=== PATIENT | female | born 1955 | race Caucasian/White ===

== ENCOUNTER 2022-12-14 05:22 | Inpatient (IN) | payer OTHER, BC ==
[~2022-12-14] VITALS: Ht 167.6 cm; Wt 85.7 kg
[2022-12-14 05:25] VITALS: BP_SYST 175
[2022-12-14] MEDS ORDERED: SERT100T PO (05:40)
[2022-12-14] MEDS ORDERED: MORPHINE 4 MG INJ. 4 MG/ML VIAL IVP ONE (05:45)
[2022-12-14] MEDS ORDERED: NACL 0.9% 1,000 ML IV ONE (05:45)
[2022-12-14] MEDS ORDERED: ONDANSETRON HCL 4 MG/2 ML VIAL IVP ONE (05:45)
[2022-12-14 05:57] LABS: BASOPHILS % (AUTO) 0.7 % (0.0-2.0); EOSINOPHILS # (AUTO) 0.1 K/uL (0.0-0.4); HEMOGLOBIN 12.6 g/dL (12.0-16.0); LYMPHOCYTES # (AUTO) 2.3 K/uL (1.0-5.5); LYMPHOCYTES % (AUTO) 33.8 % (20.5-51.5); MEAN CORPUSCULAR HEMOGLOBIN 29 pg (27-31); MEAN CORPUSCULAR HGB CONC 33 % (32-36); MEAN CORPUSCULAR VOLUME 88 fL (79.0-98.0); MONOCYTES # (AUTO) 0.4 K/uL (0.0-1.0); MONOCYTES % (AUTO) 5.3 % (1.7-9.3); NEUTROPHILS % (AUTO) 59.2 % (40.0-70.0); PLATELET COUNT (AUTO) 398 K/uL (130-430); RED BLOOD CELL COUNT(AUTO) 4.29 MIL/uL (4.2-6.2); RED CELL DISTRIBUTION WIDTH 13.6 % (9.0-15.0); WHITE BLOOD COUNT (AUTO) 6.7 K/uL (4.8-10.8)
[2022-12-14] MEDS ORDERED: PROCHLORPERAZINE EDISYLATE 10 MG/2 ML VIAL IVP ONE (06:15)
[2022-12-14] MEDS ORDERED: fentaNYL CITRATE/PF 100 MCG/2 ML AMP IVP ONE ×2 (06:15→08:15)
[2022-12-14 06:18] LABS: ALBUMIN 2.7 g/dL (3.4-4.8); CREATININE 0.6 mg/dL (0.55-1.30); TOTAL BILIRUBIN 0.5 mg/dL (0.0-1.0)
[2022-12-14] MEDS ORDERED: KCL 40 mEq in 100 mL (PREMIX) 100 ML IV ONE (06:30)
[2022-12-14 07:33] LABS: BILIRUBIN,URINE NEGATIVE (NEGATIVE); BLOOD, URINE NEGATIVE (NEGATIVE); CLARITY/URINE CLEAR (CLEAR); COLOR,URINE YELLOW (YELLOW); GLUCOSE,URINE TRACE (NEGATIVE); KETONES,URINE TRACE (NEGATIVE); LEUKOCYTE ESTERASE ,URINE NEGATIVE (NEGATIVE); NITRITE, URINE NEGATIVE (NEGATIVE); PROTEIN URINE NEGATIVE (NEGATIVE); UROBILINOGEN,URINE 0.2 (0.2-1.0)
[2022-12-14] MEDS ORDERED: METOCLOPRAMIDE HCL 10 MG/2 ML VIAL IVP ONE (08:15)
[2022-12-14] MEDS ORDERED: KCL 20 mEq in 100 mL (PREMIX) 200 ML IV ONE (08:45)
[2022-12-14] MEDS ORDERED: GASTROGRAFIN 120 ML ONE (12:08)
[2022-12-14] MEDS ORDERED: hydrALAZINE HCL 20 MG/ML VIAL IVP ONE (13:00)
[2022-12-14] MEDS ORDERED: PANTOPRAZOLE SODIUM 40 MG/VIAL (PROTONIX) IVP ONE (15:30)
[2022-12-14 16:03] LABS: BASOPHILS % (AUTO) 0.3 % (0.0-2.0); HEMATOCRIT 38.2 % (36-48); HEMOGLOBIN 12.7 g/dL (12.0-16.0); LYMPHOCYTES # (AUTO) 0.6 K/uL (1.0-5.5); LYMPHOCYTES % (AUTO) 7.3 % (20.5-51.5); MEAN CORPUSCULAR HEMOGLOBIN 29 pg (27-31); MEAN CORPUSCULAR HGB CONC 33 % (32-36); MEAN CORPUSCULAR VOLUME 88 fL (79.0-98.0); MONOCYTES # (AUTO) 0.2 K/uL (0.0-1.0); MONOCYTES % (AUTO) 1.9 % (1.7-9.3); NEUTROPHILS # (AUTO) 7.9 K/uL (1.8-7.7); NEUTROPHILS % (AUTO) 90.5 % (40.0-70.0); PLATELET COUNT (AUTO) 500 K/uL (130-430); RED BLOOD CELL COUNT(AUTO) 4.33 MIL/uL (4.2-6.2); RED CELL DISTRIBUTION WIDTH 13.7 % (9.0-15.0); WHITE BLOOD COUNT (AUTO) 8.7 K/uL (4.8-10.8)
[2022-12-14 16:10] LABS: ANION GAP 12 (5-15); CALCIUM 8.9 mg/dL (8.4-11.0); CHLORIDE 100 mmol/L (98-107); CREATININE 0.81 mg/dL (0.55-1.30); GLUCOSE 181 mg/dL (70-99); UREA NITROGEN, BLOOD 16 mg/dL (8-21)
[2022-12-14 16:15] LABS: PROTHROMBIN TIME 10.1 SECS (9.5-12.5)
[2022-12-14] MEDS ORDERED: KCL 20 mEq in 100 mL (PREMIX) 100 ML IV ONE (16:15)
[2022-12-14 16:30] LABS: ALANINE AMINOTRANSFERASE 25 U/L (12-78); AMYLASE 44 U/L (0-100); ASPARTATE AMINOTRANSFERASE 23 U/L (10-37); C-REACTIVE PROTEIN QUANT < 0.2 mg/dL (0-0.5); GFR AFRICAN AMERICAN 91 mL/min (>90); LIPASE 89 U/L (73-393); TOTAL BILIRUBIN 0.7 mg/dL (0.0-1.0)
[2022-12-14] MEDS ORDERED: D5/0.45 NS 1,000 ML IV ONE (16:30)
[2022-12-14 16:41] LABS: ACETONE, SERUM NEGATIVE (NEGATIVE)
[2022-12-14 16:53] LABS: BILIRUBIN,URINE NEGATIVE (NEGATIVE); BLOOD, URINE NEGATIVE (NEGATIVE); CLARITY/URINE CLEAR (CLEAR); COLOR,URINE YELLOW (YELLOW); GLUCOSE,URINE TRACE (NEGATIVE); KETONES,URINE TRACE (NEGATIVE); LEUKOCYTE ESTERASE ,URINE NEGATIVE (NEGATIVE); NITRITE, URINE NEGATIVE (NEGATIVE); PROTEIN URINE 1+ (NEGATIVE); UROBILINOGEN,URINE 0.2 (0.2-1.0)
[2022-12-14 17:02] LABS: BACTERIA,URINE FEW /HPF (None Seen); MUCUS,URINE 1+ /LPF (None Seen); RBC,URINE 0-3 /HPF (0-3); WBC,URINE 0-3 /HPF (0-3)
[2022-12-14] MEDS ORDERED: ONDANSETRON HCL 4 MG/2 ML VIAL IVP PRN (17:45)
[2022-12-14] MEDS ORDERED: fentaNYL CITRATE/PF 100 MCG/2 ML AMP IVP PRN ×2 (17:45)
[2022-12-14] MEDS ORDERED: METOCLOPRAMIDE HCL 10 MG/2 ML VIAL IVP PRN (17:45)
[2022-12-14] MEDS ORDERED: NS IRRIG SOLN 1000 ML IR ONE (19:05)
[2022-12-14] MEDS ORDERED: ROCURONIUM BROMIDE 10 MG/ML (ZEMURON) ONE (19:05)
[2022-12-14] MEDS ORDERED: MIDAZOLAM HCL 5 MG/ML VIAL (VERSED) IV ONE (19:05)
[2022-12-14] MEDS ORDERED: NEOSTIGMINE METHYLSULFATE 1 MG/ML, 10 ML VIAL ONE (19:05)
[2022-12-14] MEDS ORDERED: PROPOFOL 200MG/ 20ML VIAL (DIPRIVAN) IV ONE (19:05)
[2022-12-14] MEDS ORDERED: LR 1,000 ML IV.SOLN IV ONE (19:05)
[2022-12-14] MEDS ORDERED: GLYCOPYRROLATE 0.2 MG/ML VIAL ONE (19:05)
[2022-12-14] MEDS ORDERED: SEVOFLURANE 15 MIN GAS INH ONE (19:05)
[2022-12-14] MEDS ORDERED: fentaNYL CITRATE/PF 100 MCG/2 ML AMP ONE ×2 (19:05→19:27)
[2022-12-14 21:06] LABS: BASOPHILS % (AUTO) 0.4 % (0.0-2.0); HEMATOCRIT 33.2 % (36-48); HEMOGLOBIN 11.1 g/dL (12.0-16.0); LYMPHOCYTES # (AUTO) 0.7 K/uL (1.0-5.5); LYMPHOCYTES % (AUTO) 6.6 % (20.5-51.5); MEAN CORPUSCULAR HEMOGLOBIN 29 pg (27-31); MEAN CORPUSCULAR HGB CONC 33 % (32-36); MEAN CORPUSCULAR VOLUME 88 fL (79.0-98.0); MONOCYTES # (AUTO) 0.6 K/uL (0.0-1.0); MONOCYTES % (AUTO) 5.8 % (1.7-9.3); NEUTROPHILS # (AUTO) 9.5 K/uL (1.8-7.7); NEUTROPHILS % (AUTO) 87.2 % (40.0-70.0); PLATELET COUNT (AUTO) 521 K/uL (130-430); RED BLOOD CELL COUNT(AUTO) 3.78 MIL/uL (4.2-6.2); RED CELL DISTRIBUTION WIDTH 13.6 % (9.0-15.0); WHITE BLOOD COUNT (AUTO) 10.9 K/uL (4.8-10.8)
[2022-12-14 21:15] LABS: CREATININE 0.71 mg/dL (0.55-1.30)
[2022-12-14] MEDS: LR 1,000 ML IV SCH (22:15)
[2022-12-14] MEDS ORDERED: metroNIDAZOLE 500 mg/NS 100 ML IV ONE ×2 (22:18→22:20)
[2022-12-14 22:39] VITALS: BP_SYST 108
[2022-12-15] VITALS (16 sets, daily range): BP systolic 81–139
[2022-12-15] MEDS ORDERED: NACL 0.9% 1,000 ML IV ONE ×2 (00:30→05:30)
[2022-12-15] MEDS: LR 1,000 ML IV SCH ×2 (05:00→12:37)
[2022-12-15] MEDS: metroNIDAZOLE 500 mg/NS 100 ML IV SCH ×4 (06:25→20:53)
[2022-12-15] MEDS: HYDROcodone/ACETAMIN 5-325 MG TAB (NORCO/ VICODIN) PO PRN (08:19)
[2022-12-15] MEDS: ENOXAPARIN SODIUM 100 MG/ML SYRINGE SUBCUT SCH ×2 (08:32→20:53)
[2022-12-15 09:08] LABS: BASOPHILS % (AUTO) 0.2 % (0.0-2.0); HEMATOCRIT 33.8 % (36-48); HEMOGLOBIN 11.4 g/dL (12.0-16.0); LYMPHOCYTES # (AUTO) 0.7 K/uL (1.0-5.5); MEAN CORPUSCULAR HEMOGLOBIN 30 pg (27-31); MEAN CORPUSCULAR HGB CONC 34 % (32-36); MEAN CORPUSCULAR VOLUME 89 fL (79.0-98.0); MONOCYTES # (AUTO) 1.1 K/uL (0.0-1.0); MONOCYTES % (AUTO) 10.4 % (1.7-9.3); NEUTROPHILS # (AUTO) 9.1 K/uL (1.8-7.7); NEUTROPHILS % (AUTO) 83.4 % (40.0-70.0); PLATELET COUNT (AUTO) 516 K/uL (130-430); RED BLOOD CELL COUNT(AUTO) 3.82 MIL/uL (4.2-6.2); RED CELL DISTRIBUTION WIDTH 14.2 % (9.0-15.0)
[2022-12-15 09:33] LABS: CALCIUM 7.8 mg/dL (8.4-11.0); CREATININE 1.06 mg/dL (0.55-1.30)
[2022-12-15] MEDS ORDERED: NS 500 ML IV ONE (10:15)
[2022-12-15] MEDS: HYDROmorphone 1 MG/ML INJ. CARTRIDGE IVP PRN (12:50)
[2022-12-15] MEDS: ONDANSETRON HCL 4 MG/2 ML VIAL IVP PRN (13:00)
[2022-12-16 00:50] VITALS: BP_SYST 94
[2022-12-16 02:40] VITALS: BP_SYST 115
[2022-12-16] MEDS: HYDROmorphone 1 MG/ML INJ. CARTRIDGE IVP PRN ×4 (02:43→17:26)
[2022-12-16] MEDS: LR 1,000 ML IV SCH ×3 (02:44→21:00)
[2022-12-16] MEDS: metroNIDAZOLE 500 mg/NS 100 ML IV SCH ×3 (05:54→21:38)
[2022-12-16 07:13] LABS: HEMATOCRIT 30.7 % (36-48); HEMOGLOBIN 10.4 g/dL (12.0-16.0); LYMPHOCYTES # (AUTO) 1.2 K/uL (1.0-5.5); LYMPHOCYTES % (AUTO) 8.8 % (20.5-51.5); MEAN CORPUSCULAR HEMOGLOBIN 30 pg (27-31); MEAN CORPUSCULAR HGB CONC 34 % (32-36); MEAN CORPUSCULAR VOLUME 88 fL (79.0-98.0); MONOCYTES # (AUTO) 1.9 K/uL (0.0-1.0); MONOCYTES % (AUTO) 13.6 % (1.7-9.3); NEUTROPHILS # (AUTO) 10.6 K/uL (1.8-7.7); NEUTROPHILS % (AUTO) 77.6 % (40.0-70.0); PLATELET COUNT (AUTO) 457 K/uL (130-430); RED BLOOD CELL COUNT(AUTO) 3.48 MIL/uL (4.2-6.2); RED CELL DISTRIBUTION WIDTH 14.3 % (9.0-15.0); WHITE BLOOD COUNT (AUTO) 13.6 K/uL (4.8-10.8)
[2022-12-16 07:29] LABS: CALCIUM 7.9 mg/dL (8.4-11.0); CREATININE 2.69 mg/dL (0.55-1.30)
[2022-12-16 08:00] VITALS: BP_SYST 106
[2022-12-16] MEDS: ENOXAPARIN SODIUM 100 MG/ML SYRINGE SUBCUT SCH ×2 (08:59→21:38)
[2022-12-16 12:00] VITALS: BP_SYST 110
[2022-12-16 16:00] VITALS: BP_SYST 112; BP_SYST 128
[2022-12-16 20:00] VITALS: BP_SYST 104
[2022-12-17] MEDS: HYDROmorphone 1 MG/ML INJ. CARTRIDGE IVP PRN ×3 (01:56→16:58)
[2022-12-17 03:16] VITALS: BP_SYST 117
[2022-12-17] MEDS: metroNIDAZOLE 500 mg/NS 100 ML IV SCH ×3 (04:55→22:00)
[2022-12-17] MEDS: LR 1,000 ML IV SCH ×2 (04:55→16:15)
[2022-12-17 07:12] LABS: ALBUMIN 1.7 g/dL (3.4-4.8); C-REACTIVE PROTEIN QUANT 20.2 mg/dL (0-0.5); CALCIUM 7.7 mg/dL (8.4-11.0); CREATININE 2.94 mg/dL (0.55-1.30); TOTAL BILIRUBIN 0.5 mg/dL (0.0-1.0)
[2022-12-17 08:16] VITALS: BP_SYST 107
[2022-12-17] MEDS: ENOXAPARIN SODIUM 100 MG/ML SYRINGE SUBCUT SCH ×2 (08:56→21:00)
[2022-12-17 09:15] LABS: BASOPHILS % (AUTO) 0.3 % (0.0-2.0); HEMATOCRIT 25.5 % (36-48); HEMOGLOBIN 8.7 g/dL (12.0-16.0); LYMPHOCYTES # (AUTO) 0.9 K/uL (1.0-5.5); LYMPHOCYTES % (AUTO) 8.5 % (20.5-51.5); MEAN CORPUSCULAR HEMOGLOBIN 30 pg (27-31); MEAN CORPUSCULAR HGB CONC 34 % (32-36); MEAN CORPUSCULAR VOLUME 88 fL (79.0-98.0); MONOCYTES # (AUTO) 1.1 K/uL (0.0-1.0); MONOCYTES % (AUTO) 10.4 % (1.7-9.3); NEUTROPHILS # (AUTO) 8.9 K/uL (1.8-7.7); NEUTROPHILS % (AUTO) 80.8 % (40.0-70.0); PLATELET COUNT (AUTO) 369 K/uL (130-430); RED CELL DISTRIBUTION WIDTH 14.5 % (9.0-15.0)
[2022-12-17 09:16] LABS: CALCIUM 7.8 mg/dL (8.4-11.0); CREATININE 2.61 mg/dL (0.55-1.30)
[2022-12-17 11:00] VITALS: BP_SYST 104
[2022-12-17 15:50] VITALS: BP_SYST 112
[2022-12-17] MEDS ORDERED: MAGNESIUM SULFATE/D5W 100 ML IV ONE (19:15)
[2022-12-17 20:15] VITALS: BP_SYST 114
[2022-12-18 00:12] VITALS: BP_SYST 118
[2022-12-18] MEDS: ALBUMIN HUMAN 25% 100 ML IV SCH ×3 (02:30→11:18)
[2022-12-18] MEDS: LR 1,000 ML IV SCH ×3 (03:00→22:55)
[2022-12-18] MEDS: metroNIDAZOLE 500 mg/NS 100 ML IV SCH ×3 (06:19→21:17)
[2022-12-18] MEDS: HYDROmorphone 1 MG/ML INJ. CARTRIDGE IVP PRN ×3 (06:20→21:16)
[2022-12-18 08:00] VITALS: BP_SYST 132
[2022-12-18] MEDS: ENOXAPARIN SODIUM 100 MG/ML SYRINGE SUBCUT SCH ×2 (08:35→21:18)
[2022-12-18 10:39] LABS: BASOPHILS % (AUTO) 0.1 % (0.0-2.0); HEMOGLOBIN 7.3 g/dL (12.0-16.0); LYMPHOCYTES % (AUTO) 11.4 % (20.5-51.5); MEAN CORPUSCULAR HEMOGLOBIN 29 pg (27-31); MEAN CORPUSCULAR HGB CONC 33 % (32-36); MEAN CORPUSCULAR VOLUME 88 fL (79.0-98.0); MONOCYTES # (AUTO) 0.7 K/uL (0.0-1.0); MONOCYTES % (AUTO) 8.5 % (1.7-9.3); NEUTROPHILS # (AUTO) 6.9 K/uL (1.8-7.7); PLATELET COUNT (AUTO) 328 K/uL (130-430); RED BLOOD CELL COUNT(AUTO) 2.49 MIL/uL (4.2-6.2); RED CELL DISTRIBUTION WIDTH 14.8 % (9.0-15.0); WHITE BLOOD COUNT (AUTO) 8.6 K/uL (4.8-10.8)
[2022-12-18 11:00] LABS: ALBUMIN 1.9 g/dL (3.4-4.8); C-REACTIVE PROTEIN QUANT 12.9 mg/dL (0-0.5); CALCIUM 7.8 mg/dL (8.4-11.0); CREATININE 1.36 mg/dL (0.55-1.30); TOTAL BILIRUBIN 0.4 mg/dL (0.0-1.0)
[2022-12-18 11:20] VITALS: BP_SYST 130
[2022-12-18 15:45] VITALS: BP_SYST 134
[2022-12-18] MEDS: ONDANSETRON HCL 4 MG/2 ML VIAL IVP PRN (19:51)
[2022-12-18 20:00] VITALS: BP_SYST 122
[2022-12-18] MEDS: PANTOPRAZOLE SODIUM 40 MG/VIAL (PROTONIX) IVP SCH (21:17)
[2022-12-19 02:14] VITALS: BP_SYST 123
[2022-12-19] MEDS: ONDANSETRON HCL 4 MG/2 ML VIAL IVP PRN ×2 (02:40→09:10)
[2022-12-19] MEDS: HYDROmorphone 1 MG/ML INJ. CARTRIDGE IVP PRN ×4 (02:41→23:23)
[2022-12-19] MEDS: metroNIDAZOLE 500 mg/NS 100 ML IV SCH ×3 (05:53→21:04)
[2022-12-19 08:38] VITALS: BP_SYST 115
[2022-12-19] MEDS: ENOXAPARIN SODIUM 100 MG/ML SYRINGE SUBCUT SCH (08:43)
[2022-12-19] MEDS: PANTOPRAZOLE SODIUM 40 MG/VIAL (PROTONIX) IVP SCH ×2 (08:44→21:04)
[2022-12-19] MEDS: LR 1,000 ML IV SCH ×2 (09:00→19:10)
[2022-12-19 09:16] LABS: BASOPHILS % (AUTO) 0.1 % (0.0-2.0); HEMATOCRIT 22.7 % (36-48); HEMOGLOBIN 7.4 g/dL (12.0-16.0); LYMPHOCYTES # (AUTO) 0.9 K/uL (1.0-5.5); LYMPHOCYTES % (AUTO) 7.1 % (20.5-51.5); MEAN CORPUSCULAR HEMOGLOBIN 29 pg (27-31); MEAN CORPUSCULAR HGB CONC 33 % (32-36); MEAN CORPUSCULAR VOLUME 89 fL (79.0-98.0); MONOCYTES # (AUTO) 0.8 K/uL (0.0-1.0); MONOCYTES % (AUTO) 6.6 % (1.7-9.3); NEUTROPHILS % (AUTO) 86.2 % (40.0-70.0); PLATELET COUNT (AUTO) 426 K/uL (130-430); RED BLOOD CELL COUNT(AUTO) 2.56 MIL/uL (4.2-6.2); RED CELL DISTRIBUTION WIDTH 14.8 % (9.0-15.0); WHITE BLOOD COUNT (AUTO) 12.8 K/uL (4.8-10.8)
[2022-12-19 09:21] LABS: ERYTHROCYTE SEDIMENTATION RATE 78 MM/HR (0-20)
[2022-12-19 09:40] LABS: ALBUMIN 2.3 g/dL (3.4-4.8); C-REACTIVE PROTEIN QUANT 8.1 mg/dL (0-0.5); PHOSPHORUS 3.5 mg/dL (2.7-4.5); TOTAL BILIRUBIN 0.5 mg/dL (0.0-1.0)
[2022-12-19 12:00] VITALS: BP_SYST 118
[2022-12-19] MEDS: VANCOMYCIN HCL 750 MG in NS 250 ML IV SCH (15:44)
[2022-12-19 16:00] VITALS: BP_SYST 116
[2022-12-19 16:31] LABS: MEAN CORPUSCULAR HEMOGLOBIN 28 pg (27-31); MEAN CORPUSCULAR HGB CONC 32 % (32-36); MEAN CORPUSCULAR VOLUME 89 fL (79.0-98.0); PLATELET COUNT (AUTO) 376 K/uL (130-430); RED BLOOD CELL COUNT(AUTO) 2.35 MIL/uL (4.2-6.2); RED CELL DISTRIBUTION WIDTH 14.8 % (9.0-15.0); WHITE BLOOD COUNT (AUTO) 12.3 K/uL (4.8-10.8)
[2022-12-19 16:54] LABS: HEMATOCRIT 20.8 % (36-48); HEMOGLOBIN 6.6 g/dL (12.0-16.0)
[2022-12-19 17:02] LABS: BASOPHILS % (MANUAL) 0 % (0-2); EOSINOPHILS % (MANUAL) 0 % (0-7); LYMPHOCYTES % (MANUAL) 14 % (20-46); MONOCYTES % (MANUAL) 10 % (0-11)
[2022-12-19 20:00] VITALS: BP_SYST 114
[2022-12-20] VITALS (9 sets, daily range): BP systolic 114–138
[2022-12-20] MEDS: VANCOMYCIN HCL 750 MG in NS 250 ML IV SCH ×2 (03:16→15:26)
[2022-12-20] MEDS: HYDROmorphone 1 MG/ML INJ. CARTRIDGE IVP PRN ×3 (03:20→19:01)
[2022-12-20] MEDS: LR 1,000 ML IV SCH ×2 (05:18→14:29)
[2022-12-20] MEDS: metroNIDAZOLE 500 mg/NS 100 ML IV SCH ×3 (05:19→21:00)
[2022-12-20 06:26] LABS: BASOPHILS % (AUTO) 0.1 % (0.0-2.0); HEMATOCRIT 23.5 % (36-48); HEMOGLOBIN 7.9 g/dL (12.0-16.0); LYMPHOCYTES # (AUTO) 1.4 K/uL (1.0-5.5); LYMPHOCYTES % (AUTO) 12.9 % (20.5-51.5); MEAN CORPUSCULAR HEMOGLOBIN 28 pg (27-31); MEAN CORPUSCULAR HGB CONC 34 % (32-36); MEAN CORPUSCULAR VOLUME 84 fL (79.0-98.0); MONOCYTES # (AUTO) 1.2 K/uL (0.0-1.0); MONOCYTES % (AUTO) 11.3 % (1.7-9.3); NEUTROPHILS % (AUTO) 75.7 % (40.0-70.0); PLATELET COUNT (AUTO) 318 K/uL (130-430); RED CELL DISTRIBUTION WIDTH 18.3 % (9.0-15.0); WHITE BLOOD COUNT (AUTO) 10.6 K/uL (4.8-10.8)
[2022-12-20 07:01] LABS: C-REACTIVE PROTEIN QUANT 6.3 mg/dL (0-0.5); CALCIUM 7.6 mg/dL (8.4-11.0); CREATININE 1.16 mg/dL (0.55-1.30)
[2022-12-20] MEDS ORDERED: MEPERIDINE 50 MG/ML VIAL ONE (07:46)
[2022-12-20] MEDS ORDERED: MIDAZOLAM HCL 5 MG/5 ML VIAL ONE (07:47)
[2022-12-20 08:16] LABS: ERYTHROCYTE SEDIMENTATION RATE 55 MM/HR (0-20)
[2022-12-20] MEDS ORDERED: METOCLOPRAMIDE HCL 10 MG/2 ML VIAL IVP ONE (08:45)
[2022-12-20] MEDS: ENOXAPARIN SODIUM 40 MG/0.4 ML SYRINGE SUBCUT SCH (08:58)
[2022-12-20] MEDS: PANTOPRAZOLE SODIUM 40 MG/VIAL (PROTONIX) IVP SCH ×2 (08:58→20:46)
[2022-12-20] MEDS: ONDANSETRON HCL 4 MG/2 ML VIAL IVP PRN (09:17)
[2022-12-20] MEDS ORDERED: *TPN PER PHARMACY XX PRN (19:45)
[2022-12-21] VITALS: BP_SYST 127
[2022-12-21] MEDS: LR 1,000 ML IV SCH (01:00)
[2022-12-21] MEDS: VANCOMYCIN HCL 750 MG in NS 250 ML IV SCH (02:59)
[2022-12-21 04:00] VITALS: BP_SYST 124
[2022-12-21] MEDS: metroNIDAZOLE 500 mg/NS 100 ML IV SCH ×2 (05:28→15:04)
[2022-12-21] MEDS: HYDROmorphone 1 MG/ML INJ. CARTRIDGE IVP PRN ×2 (05:28→09:24)
[2022-12-21 07:09] LABS: BASOPHILS % (AUTO) 0.2 % (0.0-2.0); EOSINOPHILS % (AUTO) 0.2 % (0.0-4.0); HEMOGLOBIN 7.2 g/dL (12.0-16.0); LYMPHOCYTES # (AUTO) 1.4 K/uL (1.0-5.5); LYMPHOCYTES % (AUTO) 15.6 % (20.5-51.5); MEAN CORPUSCULAR HEMOGLOBIN 28 pg (27-31); MEAN CORPUSCULAR HGB CONC 33 % (32-36); MEAN CORPUSCULAR VOLUME 84 fL (79.0-98.0); MONOCYTES # (AUTO) 1.1 K/uL (0.0-1.0); MONOCYTES % (AUTO) 11.4 % (1.7-9.3); NEUTROPHILS # (AUTO) 6.7 K/uL (1.8-7.7); PLATELET COUNT (AUTO) 310 K/uL (130-430); RED BLOOD CELL COUNT(AUTO) 2.58 MIL/uL (4.2-6.2); RED CELL DISTRIBUTION WIDTH 18.7 % (9.0-15.0); WHITE BLOOD COUNT (AUTO) 9.3 K/uL (4.8-10.8)
[2022-12-21 07:50] LABS: ALBUMIN 1.9 g/dL (3.4-4.8); C-REACTIVE PROTEIN QUANT 3.7 mg/dL (0-0.5); CALCIUM 7.4 mg/dL (8.4-11.0); CREATININE 0.91 mg/dL (0.55-1.30); PHOSPHORUS 2.6 mg/dL (2.7-4.5); TOTAL BILIRUBIN 0.4 mg/dL (0.0-1.0)
[2022-12-21] MEDS: ENOXAPARIN SODIUM 40 MG/0.4 ML SYRINGE SUBCUT SCH (08:37)
[2022-12-21] MEDS: PANTOPRAZOLE SODIUM 40 MG/VIAL (PROTONIX) IVP SCH ×2 (08:37→21:51)
[2022-12-21 08:45] VITALS: BP_SYST 150
[2022-12-21] MEDS ORDERED: K PHOS 15 MM in NS 250 ML IV ONE (09:45)
[2022-12-21 09:54] LABS: ERYTHROCYTE SEDIMENTATION RATE 44 MM/HR (0-20)
[2022-12-21 10:07] LABS: HEMATOCRIT 21.7 % (36-48)
[2022-12-21 10:08] LABS: NEUTROPHILS % (AUTO) 72.6 % (40.0-70.0)
[2022-12-21 11:30] VITALS: BP_SYST 130
[2022-12-21 15:30] VITALS: BP_SYST 147
[2022-12-21] MEDS: VANCOMYCIN HCL 1 GM/NS PREMIX 250 ML IV SCH (16:36)
[2022-12-21 19:55] VITALS: BP_SYST 132
[2022-12-21] MEDS: HYDROcodone/ACETAMIN 5-325 MG TAB (NORCO/ VICODIN) PO PRN (23:53)
[2022-12-22 00:53] VITALS: BP_SYST 129
[2022-12-22] MEDS: VANCOMYCIN HCL 1 GM/NS PREMIX 250 ML IV SCH ×2 (02:46→16:41)
[2022-12-22 07:22] LABS: C-REACTIVE PROTEIN QUANT 1.9 mg/dL (0-0.5); CREATININE 0.81 mg/dL (0.55-1.30)
[2022-12-22 07:34] LABS: BASOPHILS % (AUTO) 0.1 % (0.0-2.0); EOSINOPHILS # (AUTO) 0.1 K/uL (0.0-0.4); EOSINOPHILS % (AUTO) 1.2 % (0.0-4.0); MEAN CORPUSCULAR HEMOGLOBIN 28 pg (27-31); MEAN CORPUSCULAR HGB CONC 33 % (32-36); MEAN CORPUSCULAR VOLUME 84 fL (79.0-98.0); MONOCYTES % (AUTO) 10.5 % (1.7-9.3); NEUTROPHILS # (AUTO) 6.5 K/uL (1.8-7.7); NEUTROPHILS % (AUTO) 67.2 % (40.0-70.0); PLATELET COUNT (AUTO) 278 K/uL (130-430); RED BLOOD CELL COUNT(AUTO) 2.49 MIL/uL (4.2-6.2); RED CELL DISTRIBUTION WIDTH 18.5 % (9.0-15.0); WHITE BLOOD COUNT (AUTO) 9.7 K/uL (4.8-10.8)
[2022-12-22 08:16] LABS: HEMOGLOBIN 6.8 g/dL (12.0-16.0)
[2022-12-22 08:43] LABS: ERYTHROCYTE SEDIMENTATION RATE 33 MM/HR (0-20)
[2022-12-22 08:50] VITALS: BP_SYST 153
[2022-12-22] MEDS: ONDANSETRON HCL 4 MG/2 ML VIAL IVP PRN (09:07)
[2022-12-22] MEDS: PANTOPRAZOLE SODIUM 40 MG/VIAL (PROTONIX) IVP SCH ×2 (09:07→22:09)
[2022-12-22] MEDS: HYDROmorphone 1 MG/ML INJ. CARTRIDGE IVP PRN ×4 (09:08→22:12)
[2022-12-22] MEDS: ENOXAPARIN SODIUM 40 MG/0.4 ML SYRINGE SUBCUT SCH (09:09)
[2022-12-22 12:00] VITALS: BP_SYST 124
[2022-12-22 15:35] VITALS: BP_SYST 142
[2022-12-22 20:00] VITALS: BP_SYST 132
[2022-12-23 00:30] VITALS: BP_SYST 130
[2022-12-23] MEDS: VANCOMYCIN HCL 1 GM/NS PREMIX 250 ML IV SCH ×2 (02:55→15:05)
[2022-12-23] MEDS: HYDROcodone/ACETAMIN 5-325 MG TAB (NORCO/ VICODIN) PO PRN ×2 (05:39→18:15)
[2022-12-23 07:52] VITALS: BP_SYST 131
[2022-12-23] MEDS: ENOXAPARIN SODIUM 40 MG/0.4 ML SYRINGE SUBCUT SCH (09:18)
[2022-12-23] MEDS: PANTOPRAZOLE SODIUM 40 MG/VIAL (PROTONIX) IVP SCH ×2 (09:18→21:29)
[2022-12-23 16:00] VITALS: BP_SYST 158
[2022-12-23 16:10] LABS: BASOPHILS % (AUTO) 0.2 % (0.0-2.0); EOSINOPHILS # (AUTO) 0.1 K/uL (0.0-0.4); EOSINOPHILS % (AUTO) 1.1 % (0.0-4.0); HEMATOCRIT 24.4 % (36-48); HEMOGLOBIN 8.2 g/dL (12.0-16.0); LYMPHOCYTES # (AUTO) 1.4 K/uL (1.0-5.5); LYMPHOCYTES % (AUTO) 14.5 % (20.5-51.5); MEAN CORPUSCULAR HEMOGLOBIN 28 pg (27-31); MEAN CORPUSCULAR HGB CONC 34 % (32-36); MEAN CORPUSCULAR VOLUME 85 fL (79.0-98.0); MONOCYTES # (AUTO) 0.9 K/uL (0.0-1.0); MONOCYTES % (AUTO) 9.7 % (1.7-9.3); NEUTROPHILS # (AUTO) 7.3 K/uL (1.8-7.7); NEUTROPHILS % (AUTO) 74.5 % (40.0-70.0); PLATELET COUNT (AUTO) 286 K/uL (130-430); RED BLOOD CELL COUNT(AUTO) 2.89 MIL/uL (4.2-6.2); RED CELL DISTRIBUTION WIDTH 17.9 % (9.0-15.0); WHITE BLOOD COUNT (AUTO) 9.8 K/uL (4.8-10.8)
[2022-12-23 16:17] LABS: CREATININE 0.67 mg/dL (0.55-1.30)
[2022-12-23 20:30] VITALS: BP_SYST 148
[2022-12-24 03:00] VITALS: BP_SYST 144
[2022-12-24] MEDS: VANCOMYCIN HCL 1 GM/NS PREMIX 250 ML IV SCH (03:10)
[2022-12-24] MEDS: HYDROcodone/ACETAMIN 5-325 MG TAB (NORCO/ VICODIN) PO PRN (03:13)
[2022-12-24 07:12] LABS: BASOPHILS % (AUTO) 0.2 % (0.0-2.0); EOSINOPHILS # (AUTO) 0.1 K/uL (0.0-0.4); EOSINOPHILS % (AUTO) 1.3 % (0.0-4.0); HEMATOCRIT 22.4 % (36-48); HEMOGLOBIN 7.6 g/dL (12.0-16.0); LYMPHOCYTES # (AUTO) 1.5 K/uL (1.0-5.5); LYMPHOCYTES % (AUTO) 15.5 % (20.5-51.5); MEAN CORPUSCULAR HEMOGLOBIN 28 pg (27-31); MEAN CORPUSCULAR HGB CONC 34 % (32-36); MEAN CORPUSCULAR VOLUME 82 fL (79.0-98.0); MONOCYTES # (AUTO) 0.7 K/uL (0.0-1.0); MONOCYTES % (AUTO) 7.6 % (1.7-9.3); NEUTROPHILS # (AUTO) 7.4 K/uL (1.8-7.7); NEUTROPHILS % (AUTO) 75.4 % (40.0-70.0); PLATELET COUNT (AUTO) 297 K/uL (130-430); RED BLOOD CELL COUNT(AUTO) 2.73 MIL/uL (4.2-6.2); WHITE BLOOD COUNT (AUTO) 9.7 K/uL (4.8-10.8)
[2022-12-24 07:35] LABS: ALBUMIN 1.7 g/dL (3.4-4.8); C-REACTIVE PROTEIN QUANT 2.9 mg/dL (0-0.5); CALCIUM 7.3 mg/dL (8.4-11.0); CREATININE 0.68 mg/dL (0.55-1.30); PHOSPHORUS 3.7 mg/dL (2.7-4.5); TOTAL BILIRUBIN 0.3 mg/dL (0.0-1.0)
[2022-12-24 08:00] VITALS: BP_SYST 142
[2022-12-24] MEDS: PANTOPRAZOLE SODIUM 40 MG/VIAL (PROTONIX) IVP SCH ×2 (09:02→21:16)
[2022-12-24] MEDS: ENOXAPARIN SODIUM 40 MG/0.4 ML SYRINGE SUBCUT SCH (09:03)
[2022-12-24 09:06] LABS: ERYTHROCYTE SEDIMENTATION RATE 51 MM/HR (0-20)
[2022-12-24] MEDS: ONDANSETRON HCL 4 MG/2 ML VIAL IVP PRN (09:10)
[2022-12-24 12:00] VITALS: BP_SYST 139
[2022-12-24] MEDS: POTASSIUM CHLORIDE 40 MEQ in NS 250 ML IV SCH ×2 (12:00→18:52)
[2022-12-24 16:00] VITALS: BP_SYST 142
[2022-12-24 20:00] VITALS: BP_SYST 150
[2022-12-25 00:31] VITALS: BP_SYST 142
[2022-12-25 08:00] VITALS: BP_SYST 157
[2022-12-25 08:57] LABS: BASOPHILS # (AUTO) 0.1 K/uL (0.0-0.2); BASOPHILS % (AUTO) 0.9 % (0.0-2.0); EOSINOPHILS # (AUTO) 0.1 K/uL (0.0-0.4); EOSINOPHILS % (AUTO) 0.8 % (0.0-4.0); HEMATOCRIT 24.3 % (36-48); LYMPHOCYTES # (AUTO) 1.3 K/uL (1.0-5.5); LYMPHOCYTES % (AUTO) 12.3 % (20.5-51.5); MEAN CORPUSCULAR HEMOGLOBIN 28 pg (27-31); MEAN CORPUSCULAR HGB CONC 33 % (32-36); MEAN CORPUSCULAR VOLUME 84 fL (79.0-98.0); MONOCYTES # (AUTO) 1.1 K/uL (0.0-1.0); MONOCYTES % (AUTO) 10.3 % (1.7-9.3); NEUTROPHILS # (AUTO) 8.1 K/uL (1.8-7.7); NEUTROPHILS % (AUTO) 75.7 % (40.0-70.0); PLATELET COUNT (AUTO) 181 K/uL (130-430); RED CELL DISTRIBUTION WIDTH 17.7 % (9.0-15.0); WHITE BLOOD COUNT (AUTO) 10.8 K/uL (4.8-10.8)
[2022-12-25 09:17] LABS: CALCIUM 7.8 mg/dL (8.4-11.0); CREATININE 0.75 mg/dL (0.55-1.30)
[2022-12-25] MEDS: PANTOPRAZOLE SODIUM 40 MG/VIAL (PROTONIX) IVP SCH (09:17)
[2022-12-25] MEDS: ENOXAPARIN SODIUM 40 MG/0.4 ML SYRINGE SUBCUT SCH (09:17)
[2022-12-25] MEDS: ONDANSETRON HCL 4 MG/2 ML VIAL IVP PRN (09:17)
[2022-12-25] MEDS ORDERED: LOVI40 SUBCUT (09:57)
[2022-12-25] MEDS ORDERED: PRO40 PO (09:57)
[2022-12-25 11:53] VITALS: BP_SYST 134
[2022-12-25 15:57] VITALS: BP_SYST 134
[2022-12-25 18:00] VITALS: BP_SYST 144
== END 2022-12-25 16:24 | DRG 853 ==
LOC: SED 05:22 → STU 16:25 → SIC 12-15 06:55 → STU 12-15 14:13 → SMU 12-21 23:20
PROVIDERS: ADMIT Preventive Medicine Preventive Medicine/Occupational Environmental Medicine; ATTEND Preventive Medicine Preventive Medicine/Occupational Environmental Medicine
PROC: 0DS80ZZ Reposition Small Intestine, Open Approach (ICD-10-PCS; 2022-12-14)
PROC: 0DQV0ZZ Repair Mesentery, Open Approach (ICD-10-PCS; 2022-12-14)
PROC: 0F190ZB Bypass Common Bile Duct to Small Intestine, Open Approach (ICD-10-PCS; 2022-12-14)
PROC: 0WQF0ZZ Repair Abdominal Wall, Open Approach (ICD-10-PCS; principal; 2022-12-14 17:03)
PROC: 30233N1 Transfusion of Nonautologous Red Blood Cells into Peripheral Vein, Percutaneous Approach (ICD-10-PCS; 2022-12-19)
PROC: 0D988ZZ Drainage of Small Intestine, Via Natural or Artificial Opening Endoscopic (ICD-10-PCS; 2022-12-20)
PROC: 0DNU0ZZ Release Omentum, Open Approach (ICD-10-PCS; 2022-12-20)
PROC: 0DJ08ZZ Inspection of Upper Intestinal Tract, Via Natural or Artificial Opening Endoscopic (ICD-10-PCS; 2022-12-20)
DX: A41.2 Sepsis due to unspecified staphylococcus (principal); E43 Unspecified severe protein-calorie malnutrition; J18.9 Pneumonia, unspecified organism; J96.01 Acute respiratory failure with hypoxia; N17.0 Acute kidney failure with tubular necrosis; K56.1 Intussusception; K92.0 Hematemesis; E87.1 Hypo-osmolality and hyponatremia; E87.0 Hyperosmolality and hypernatremia; D75.839 Thrombocytosis, unspecified; E83.51 Hypocalcemia; E83.39 Other disorders of phosphorus metabolism; E83.41 Hypermagnesemia; E66.9 Obesity, unspecified; F32.A Depression, unspecified; R10.0 Acute abdomen; E88.09 Other disorders of plasma-protein metabolism, not elsewhere classified; T85.838A Hemorrhage due to other internal prosthetic devices, implants and grafts, initial encounter; Y92.239 Unspecified place in hospital as the place of occurrence of the external cause; F10.10 Alcohol abuse, uncomplicated; Y83.2 Surgical operation with anastomosis, bypass or graft as the cause of abnormal reaction of the patient, or of later complication, without mention of misadventure at the time of the procedure; Y73.3 Surgical instruments, materials and gastroenterology and urology devices (including sutures) associated with adverse incidents; E87.6 Hypokalemia; R73.9 Hyperglycemia, unspecified; E83.42 Hypomagnesemia; D63.8 Anemia in other chronic diseases classified elsewhere; Z20.822 Contact with and (suspected) exposure to COVID-19; R53.81 Other malaise; Z79.01 Long term (current) use of anticoagulants; Z88.0 Allergy status to penicillin; Z90.710 Acquired absence of both cervix and uterus; Z98.84 Bariatric surgery status; Z79.899 Other long term (current) drug therapy; Z88.1 Allergy status to other antibiotic agents; Z88.2 Allergy status to sulfonamides; Z68.30 Body mass index [BMI] 30.0-30.9, adult
CPT/HCPCS: 36415; 43235; 71045; 74250-TC; 76376; 80048; 80053; 80202; 81000; 81003; 82009; 82150; 82550; 83605; 83690; 83735; 83880; 84100; 84478; 84484; 85007; 85025; 85027; 85610-TC; 85651-TC; 85730-TC; 86140; 86886; 86900; 86901; 86920; 87040; 87081; 87186-TC; 88302; 88305; 88307; 93005; 93306; 96361; 96374; 96375; 96376; 97110-GP; 97112-GP; 97116-GP; 97530-GP; 99285; C9113; G0378; J0360; J0780; J1170; J1650; J1956; J2175; J2250; J2270; J2405; J2704; J2710; J2765; J3010; J3370; J3480; J3490; J7050; J7120; P9021; Q9963